=== PATIENT | female | born 1935 | race Caucasian/White ===

== ENCOUNTER 2024-06-24 14:39 | Observation (INO) ==
[2024-06-24] MEDS ORDERED: IOPAMIDOL 100 ML BOTTLE IV ONE (14:40)
[2024-06-24 15:00] LABS: Basophils # (Auto) 0.02 K/mcL (0.00-0.30); Basophils % (Auto) 0.2 % (0.0-2.0); Eosinophils # (Auto) 0.21 K/mcL (0.00-0.70); Eosinophils % (Auto) 2.4 % (0.0-7.0); Hematocrit 43.8 % (34.1-44.9); Hemoglobin 14.3 g/dL (11.2-15.7); Lymphocytes % (Auto) 30.6 % (15.5-49.0); Mean Cell Volume 94.2 fL (80.0-100.0); Mean Corpuscular HGB Conc 32.6 g/dL (31.0-36.0); Mean Platelet Volume 9.4 fL (8.8-12.5); Monocytes # (Auto) 0.88 K/mcL (0.10-0.90); Neutrophils % (Auto) 56.7 % (38.0-78.0); Platelet Count 389 K/mcL (140-440); RBC 4.65 M/mcL (3.59-5.38); WBC 8.8 K/mcL (4.5-11.0)
[2024-06-24 15:14] LABS: INR 0.9 (0.9-1.1); Partial Thromboplastin Time 23.4 sec (20.0-37.0); Prothrombin Time 12.7 sec (11.9-14.5)
[2024-06-24 15:24] LABS: ALT/SGPT 22 U/L (<40); AST/SGOT 24 U/L (<32); Albumin 4.1 gm/dL (3.2-5.2); Albumin/Globulin Ratio 1.2 (1.0-2.3); Alkaline Phosphatase 124 U/L (39-117); Bilirubin,Total 0.3 mg/dL (0.1-1.0); Blood Urea Nitrogen 16 mg/dL (8-23); Carbon Dioxide 22 mmol/L (22-30); Chloride 106 mmol/L (96-108); Globulin 3.3 gm/dL (2.2-3.7); Glomerular Filtration Rate 57; Glucose 113 mg/dL (70-105); Potassium 3.5 mmol/L (3.3-5.1); Sodium 140 mmol/L (133-145)
[2024-06-24 16:33] LABS: Appearance,Urine Clear (Clear); Bilirubin,Urine Negative (Negative); Color,Urine Yellow; Glucose,Urine (UA) Negative (Negative); Ketones,Urine Negative (Negative); Leukocyte Esterase,Urine Negative /uL (Negative); Nitrate,Urine Negative (Negative); PH,Urine 5.5 (5.0-9.0); Protein,Urine Negative (Negative); Urine Blood Negative ery/mcL (Negative); Urine RBC 3 /hpf (0-3); Urine Squamous Epithelial Cell 1 /hpf (0-4); Urine WBC 2 /hpf (0-4); Urobilinogen,Urine Normal
[2024-06-24] MEDS: ASPIRIN 81 MG TAB.CHEW CHEWED ONE (16:38)
[2024-06-24] MEDS: CLOPIDOGREL 300 MG TABLET PO ONE (17:30)
[2024-06-24] MEDS ORDERED: LABETALOL HCL 20 MG/4 ML VIAL IV PRN (19:09)
[2024-06-24] MEDS ORDERED: ONDANSETRON 4 MG/2 ML VIAL IV PRN (19:09)
[2024-06-24] MEDS ORDERED: ACETAMINOPHEN 325 MG TABLET PO PRN (19:09)
[2024-06-24] MEDS ORDERED: SENNOSIDES 1 TABLET PO PRN (19:09)
[2024-06-24] MEDS ORDERED: hydrALAZINE 20 MG/ML VIAL IV PRN (19:09)
[2024-06-24] MEDS: CALCIUM CARBONATE 500 MG TAB.CHEW CHEWED PRN (20:02)
[2024-06-24] MEDS: 0.9 % SODIUM CHLORIDE 10 ML SYRINGE IV SCH (20:09)
[2024-06-25] MEDS: ASPIRIN 81 MG TAB.CHEW CHEWED SCH (08:30)
[2024-06-25 10:57] LABS: Hemoglobin A1C 5.7 % Hgb (4.0-6.0)
== END 2024-06-26 11:30 | disposition home or self-care (01) ==
LOC: ED 14:39 → MEDSUR 14:39
PROVIDERS: ADMIT Internal Medicine; ATTEND Internal Medicine